=== PATIENT | male | born 1945 | race African-American/Black ===

== ENCOUNTER 2018-11-05 11:44 | Observation (INO) | payer OTHER ==
[2018-11-05] MEDS ORDERED: Nitroglycerin 2% Ointment 1 INCH/1 GM Packet ONE (12:12)
--- NOTE | 2018-11-05 12:16 | RAD ---
XR Chest 1 View Portable HISTORY: Chest pain COMPARISON: None FINDINGS: The heart size is normal. The lungs are well expanded without focal areas of consolidation, pneumothorax or pleural effusions. IMPRESSION: No radiographic evidence of acute cardiopulmonary process.
[2018-11-05 12:28] LABS: #Lymphocytes 0.9 thou/uL (1.20-3.40); #Monocytes 0.3 thou/uL (0.11-0.59); #Neutrophils 2.1 thou/uL (1.40-6.50); %Basophils 0.2 % (0.0-1.0); %Eosinophils 1.4 % (0.0-10.0); %Lymphocytes 27.1 % (21.0-51.0); %Monocytes 8.1 % (0.0-10.0); %Neutrophils 63.1 % (42.0-75.0); Hemoglobin 14.1 g/dL (14.0-18.0); Mean Corpuscular HGB CONC 33.6 g/dL (32.0-36.0); Mean Corpuscular Hemoglobin 31.6 pg (27.0-31.0); Mean Corpuscular Volume 94.1 fL (78.0-98.0); Mean Platelet Volume 9.5 fL (7.4-10.4); Platelet Count 179 thou/uL (130-400); Red Blood Cell (RBC) Count 4.47 mill/uL (4.70-6.10); White Blood Cell (WBC) Count 3.3 thou/uL (4.8-10.8)
[2018-11-05] MEDS ORDERED: Acetaminophen 500 MG TAB ONE (12:33)
[2018-11-05 12:47] LABS: ALT (SGPT) 14 U/L (8-55); AST (SGOT) 19 U/L (5-34); Albumin 3.9 g/dL (3.4-4.8); Alkaline Phosphatase 85 U/L (40-150); Anion Gap 14 mmol/L (10-20); BUN (Urea Nitrogen) 19 mg/dL (8.4-25.7); Bilirubin, Total 0.9 mg/dL (0.2-1.2); Calc. Creatinine Clearance 0 mL/min (70-130); Calcium 9.2 mg/dL (7.8-10.44); Carbon Dioxide 23 mmol/L (23-31); Chloride 106 mmol/L (98-107); Estimated GFR-MDRD 66; Globulin 3.2 g/dL (2.4-3.5); Glucose 84 mg/dL (83-110); Potassium 4.1 mmol/L (3.5-5.1); Protein, Total 7.1 g/dL (5.8-8.1); Sodium 139 mmol/L (136-145)
[2018-11-05 13:13] LABS: CKMB 1.7 ng/mL (0-6.6)
--- NOTE | 2018-11-05 14:09 | PDOC.FPRHP ---
- History of Present Illness Chief Complaint: Chest Pain History of Present Illness: 73 y/o M PMHx CAD, HTN, HLD presents from halfway for chest pain. The patient reports the chest pain was substernal, left sided and started this morning around 9 or 9:30. He reports that it is a squeezing/pressure type pain. It does not radiate. He has associated SOB, but denies any diaphoresis or nausea. He reports he also has a sharp pain that comes and goes. He received 2 nitros and aspirin at the shelter that relieved the chest pain, but the chest pain returned when EMS picked him up, so he got one more nitro. By the time he arrived in the ED he was still complaining of 5/10 chest pain and the nitropaste relieved this. He reports a cardiac catheterization at [facility] in 2016 that showed CAD, but nothing that required stenting, so they proceeded with medical management. He reports prior to this AM, he was not having any chest pain and not requiring his nitro in a few years. ED Course: The patient was evaluated in the ED by Dr. Noble and received one inch nitro paste and 1000mg tylenol. - Allergies/Adverse Reactions Allergies Allergy/AdvReac Type Severity Reaction Status Date / Time No Known Allergies Allergy Verified 11/05/18 16:22 - Home Medications Medication Instructions Recorded Confirmed Type Aspirin Chewable 81 mg PO DAILY 11/05/18 11/05/18 History Atorvastatin Calcium 40 mg PO HS 11/05/18 11/05/18 History Carvedilol 25 mg PO BID 11/05/18 11/05/18 History Isosorbide Mononitrate [Isosorbide 60 mg PO DAILY 11/05/18 11/05/18 History Mononitrate ER] Lisinopril 5 mg PO DAILY 11/05/18 11/05/18 History hydrALAZINE [Apresoline] 25 mg PO TID 11/05/18 11/05/18 History - History PMHx: CAD, HTN, HLD PSHx: appendectomy FHx: Mother - CAD Social: Denies tobacco, EtOH, or drug use. Currently a prisoner. - Review of Systems General: denies: fever/chills, fatigue Eyes: reports: vision changes (reports occasional blurry vision that comes and goes). denies: eye pain ENT: denies: nasal congestion, rhinorrhea Respiratory: denies: cough, shortness of breath Cardiovascular: denies: chest pain, edema Gastrointestinal: denies: nausea, vomiting, diarrhea, abdominal pain Genitourinary: denies: dysuria, polyuria Skin: denies: rashes, lesions Musculoskeletal: denies: pain, tenderness, stiffness Neurological: denies: numbness, syncope, seizure, weakness Psychological: denies: anxiety, depression - Vital signs BP: 152/88 HR: 55 RR: 15 Tmax: 98.1 Pox: 98% on RA Wt: 97.5 kg - Physical Exam Constitutional: NAD, awake, alert and oriented, well developed HEENT: normocephalic and atraumatic, PERRLA, EOMI, conjunctiva clear, no scleral icterus, grossly normal vision, grossly normal hearing, normal nasal mucosa, MMM, oropharynx clear Neck: supple, no LAD Chest: no-tender to palpation, no lesions Heart: RRR, normal S1/S2, no murmurs/rubs/gallops, pulses present, no edema Lungs: CTAB, no respiratory distress, good air movement, no rales/rhonchi, no wheezing Abdomen: soft, non-tender, bowel sounds present, no masses/distention Musculoskeletal: normal structure, normal tone Neurological: no focal deficit, CN II-XII intact, normal sensation Skin: good turgor, capillary refill <2 seconds Heme/Lymphatic: no unusual bruising or bleeding, no purpura, no petechia Psychiatric: normal mood and affect, good judgment and insight, intact recent and remote memory FMR H&P: Results - Labs Result Diagrams: 11/06/18 04:35 11/06/18 04:35 Lab results: WBC 3.3 thou/uL (4.8-10.8) L 11/05/18 12:19 Hgb 14.1 g/dL (14.0-18.0) 11/05/18 12:19 Hct 42.1 % (42.0-52.0) 11/05/18 12:19 MCV 94.1 fL (78.0-98.0) 11/05/18 12:19 Plt Count 179 thou/uL (130-400) 11/05/18 12:19 Neutrophils % 63.1 % (42.0-75.0) 11/05/18 12:19 Sodium 139 mmol/L (136-145) 11/05/18 12:19 Potassium 4.1 mmol/L (3.5-5.1) 11/05/18 12:19 Chloride 106 mmol/L (98-107) 11/05/18 12:19 Carbon Dioxide 23 mmol/L (23-31) 11/05/18 12:19 BUN 19 mg/dL (8.4-25.7) 11/05/18 12:19 Creatinine 1.09 mg/dL (0.7-1.3) 11/05/18 12:19 Glucose 84 mg/dL (83-110) 11/05/18 12:19 Calcium 9.2 mg/dL (7.8-10.44) 11/05/18 12:19 Total Bilirubin 0.9 mg/dL (0.2-1.2) 11/05/18 12:19 AST 19 U/L (5-34) 11/05/18 12:19 ALT 14 U/L (8-55) 11/05/18 12:19 Alkaline Phosphatase 85 U/L (40-150) 11/05/18 12:19 CK-MB (CK-2) 1.7 ng/mL (0-6.6) 11/05/18 12:19 Serum Total Protein 7.1 g/dL (5.8-8.1) 11/05/18 12:19 Albumin 3.9 g/dL (3.4-4.8) 11/05/18 12:19 - EKG Interpretation EKG: Rate 60, no ST or T wave changes - Radiology Interpretation Chest x-ray Status: image reviewed by me, report reviewed by me Additional comment: No acute cardiopulmonary process FMR H&P: A/P - Problem List (1) Anginal chest pain at rest Current Visit: Yes Status: Acute Code(s): I20.8 - OTHER FORMS OF ANGINA PECTORIS (2) HTN (hypertension) Current Visit: Yes Status: Acute Code(s): I10 - ESSENTIAL (PRIMARY) HYPERTENSION (3) HLD (hyperlipidemia) Current Visit: Yes Status: Acute Code(s): E78.5 - HYPERLIPIDEMIA, UNSPECIFIED (4) CAD (coronary artery disease) Current Visit: Yes Status: Acute Code(s): I25.10 - ATHSCL HEART DISEASE OF [place] CORONARY ARTERY W/O ANG PCTRS (5) Elevated troponin Current Visit: Yes Status: Acute Code(s): R74.8 - ABNORMAL LEVELS OF OTHER SERUM ENZYMES (6) Leukopenia Current Visit: Yes Status: Acute Code(s): D72.819 - DECREASED WHITE BLOOD CELL COUNT, UNSPECIFIED - Plan Anginal Chest Pain Patient with Heart Score 6. Initial troponin 0.056. EKG WNL. -Will trend trops -Consulted cardiology who recommended lexiscan stress test -NPO and hold beta blockers -Obs on tele Leukopenia Pt with initial WBC count of 3.3, currently in halfway -Will check HIV, RPR, Hep C -Trend CAD Patient with h/o CAD with no prior intervention -Aspirin -Continue home isosorbide mononitrate, lisinopril -Held coreg for stress test HTN BP's stable at this time -Will continue home isosorbide mononitrate, lisinopril, hydralazine HLD Will check FLP -Continue home atorvastatin VTE ppx: Lovenox Code Status: Full Disposition/LOS: Obs on tele, length of stay likely less than 48 hours Addendum - Attending - Attending Attestation Date/Time: 11/06/18 1028 I personally evaluated the patient and discussed the management with Dr. Hoang on 11/05. I agree with the History, Examination, Assessment and Plan documented above with any addition or exceptions noted below. A couple components of typical chest pain and a history of CAD + elevated TnI. Will consult cardiology. Also apparently an adverse event to the stress test 3 years ago.
[2018-11-05] MEDS ORDERED: Nitroglycerin 0.4 MG TAB (25 Tab Bottle) PO PRN (16:00)
[2018-11-05] MEDS ORDERED: Ondansetron PF 4 MG/2 ML Vial IVP PRN (16:00)
[2018-11-05] MEDS ORDERED: Ondansetron ODT 4 MG TAB PO PRN (16:00)
[2018-11-05 16:08] LABS: Troponin I 0.118 ng/mL (< 0.028)
[2018-11-05 17:23] LABS: Magnesium 2.2 mg/dL (1.6-2.6); Phosphorus 3.8 mg/dL (2.3-4.7)
[2018-11-05] MEDS: hydrALAZINE 25 MG TAB PO SCH ×2 (17:27→20:35)
[2018-11-05 17:37] LABS: HIV (1/2) Antibody/Antigen Non-Reactive (NonReactive); HIV 1/2 INDEX 0.12 S/CO (<1.00); Hep C IgG Ab Non-Reactive (NonReactive); Hep C Index 0.04 S/CO (0-0.79)
[2018-11-05 17:38] LABS: Troponin I 0.085 ng/mL (< 0.028)
--- NOTE | 2018-11-05 19:57 | CON ---
DATE OF CONSULTATION: 11/05/2018 REASON FOR CONSULTATION: Chest pain. HISTORY OF PRESENT ILLNESS: Mr. Benavides is a 73-year-old gentleman, who comes to the hospital for chest pain. He is an inmate. He started having chest pain earlier this morning, has been ongoing for about 24 hours now. The pain is described as mild pressure in the midsternal area. He had a heart catheterization about 3 years ago at [facility] for the same reason, at which point he was told he had some plaque formation, but nothing in that they would need to put a stent in. He is an inmate in a longterm. He received two nitroglycerins and an aspirin, which he states alleviate the pain. He is here for further evaluation. So far, his troponins have been in the indeterminate range. PAST MEDICAL HISTORY: 1. Coronary artery disease as above. 2. Hypertension. 3. Hyperlipidemia. PAST SURGICAL HISTORY: Appendectomy. FAMILY HISTORY: Mother with CAD. SOCIAL HISTORY: No alcohol, tobacco, or drugs. OUTPATIENT MEDICATIONS: 1. Aspirin 81 a day. 2. Atorvastatin 40 mg a day. 3. Carvedilol 25 mg b.i.d. 4. Imdur 60 mg a day. 5. Lisinopril 5 mg a day. 6. Hydralazine 25 mg t.i.d. REVIEW OF SYSTEMS: A 12-point review of systems was done and was all negative unless stated in the history of present illness. ALLERGIES: NO KNOWN DRUG ALLERGIES. PHYSICAL EXAMINATION: VITAL SIGNS: Temperature 98.0, pulse 59, respiratory rate 20, saturation 95% on room air, and blood pressure 149/78. GENERAL: Awake, alert, and oriented x3, in no distress. HEENT: Normocephalic, atraumatic. NECK: Supple. LUNGS: Clear. CARDIOVASCULAR: S1 and S2. No S3 or S4. No murmurs. ABDOMEN: Soft. Positive bowel sounds. EXTREMITIES: No edema. SKIN: Warm and dry. LABORATORY DATA: Laboratory work was reviewed. CBC and CMP were reviewed. Troponins are 0.05, 0.11, and then 0.08. TSH was normal. Normal BUN and creatinine. GFR of 66. Chest x-ray was reviewed. ASSESSMENT: 1. Chest pain. 2. History of mild coronary artery disease. PLAN: Agreed with stress testing. He is ruled out for an ACS at this time. If his stress is abnormal, we will plan on further risk stratification, otherwise further recommendations pending results of the stress and echocardiogram. Job ID: [id number]
[2018-11-05] MEDS ORDERED: Atorvastatin Calcium 40 MG TAB PO SCH (21:00)
[2018-11-06 00:30] LABS: Syphilis Antibody Nonreactive (Nonreactive); Syphilis Antibody Index 0.04 S/CO (<1.00 Non-Reactive)
[2018-11-06 05:48] LABS: #Eosinphils 0.1 thou/uL (0.0-0.7); #Lymphocytes 1.2 thou/uL (1.20-3.40); #Monocytes 0.4 thou/uL (0.11-0.59); #Neutrophils 2.4 thou/uL (1.40-6.50); %Basophils 0.7 % (0.0-1.0); %Eosinophils 2.1 % (0.0-10.0); %Lymphocytes 28.9 % (21.0-51.0); %Monocytes 10.2 % (0.0-10.0); %Neutrophils 58.1 % (42.0-75.0); Hemoglobin 13.5 g/dL (14.0-18.0); Mean Corpuscular HGB CONC 32.8 g/dL (32.0-36.0); Mean Corpuscular Volume 94.5 fL (78.0-98.0); Mean Platelet Volume 9.7 fL (7.4-10.4); Platelet Count 172 thou/uL (130-400); Red Blood Cell (RBC) Count 4.35 mill/uL (4.70-6.10); White Blood Cell (WBC) Count 4.2 thou/uL (4.8-10.8)
[2018-11-06 06:06] LABS: Anion Gap 9 mmol/L (10-20); BUN (Urea Nitrogen) 15 mg/dL (8.4-25.7); Calc. Creatinine Clearance 87 mL/min (70-130); Calcium 9.4 mg/dL (7.8-10.44); Carbon Dioxide 28 mmol/L (23-31); Cardiac Risk 2.6 (Less than 4.5); Chloride 104 mmol/L (98-107); Cholesterol 120 mg/dl (< 200 Desired); Estimated GFR-MDRD 89; Glucose 75 mg/dL (83-110); HDL Cholesterol 47 mg/dL (>60 Neg Risk); LDL Cholesterol, Calculated 64 mg/dL; Potassium 3.6 mmol/L (3.5-5.1); Sodium 137 mmol/L (136-145); Triglycerides 44 mg/dL (Less than 150)
[2018-11-06 06:20] VITALS: BMI 29.4
[2018-11-06] MEDS ORDERED: Acetaminophen 325 MG TAB PO PRN (06:25)
--- NOTE | 2018-11-06 08:46 | PDOC.FM ---
- Subjective Subjective: Patient reports chest pain has improved. He still reports some residual substernal chest pain that is not exacerbated by movement, but is worsened with palpation. He denies SOB, diaphoresis. He tolerated PO yesterday well. He denies any recent change in level of activity. - Objective MAR Reviewed: Yes Vital Signs & Weight: Vital Signs (12 hours) Temp Pulse Resp BP BP Pulse Ox 11/06/18 07:53 98.5 F 65 14 185/88 H 96 11/06/18 02:00 97.7 F 58 L 18 155/79 H 95 11/05/18 23:42 97.3 F L 57 L 18 141/69 H 98 Weight Weight 92.986 kg I&O: 11/05/18 11/06/18 11/07/18 06:59 06:59 06:59 Intake Total 730 Output Total 500 Balance 230 Result Diagrams: 11/06/18 04:35 11/06/18 04:35 Phys Exam - Physical Examination Constitutional: NAD HEENT: moist MMs, sclera anicteric Respiratory: no wheezing, no rales, no rhonchi, clear to auscultation bilateral Cardiovascular: RRR, no significant murmur, no rub Gastrointestinal: soft, non-tender, no distention, positive bowel sounds Musculoskeletal: no edema, pulses present mild sternal tenderness, not exact pain reproduced Neurological: non-focal, moves all 4 limbs Psychiatric: normal affect, A&O x 3 Skin: normal turgor, cap refill <2 seconds Dx/Plan (1) Anginal chest pain at rest Code(s): I20.8 - OTHER FORMS OF ANGINA [place]ECT[place] Status: Acute (2) HTN (hypertension) Code(s): I10 - ESSENTIAL (PRIMARY) HYPERTENSION Status: Acute (3) HLD (hyperlipidemia) Code(s): E78.5 - HYPERLIPIDEMIA, UNSPECIFIED Status: Acute (4) CAD (coronary artery disease) Code(s): I25.10 - ATHSCL HEART DISEASE OF [place] CORONARY ARTERY W/O ANG PCTRS Status: Acute (5) Elevated troponin Code(s): R74.8 - ABNORMAL LEVELS OF OTHER SERUM ENZYMES Status: Acute (6) Leukopenia Code(s): D72.819 - DECREASED WHITE BLOOD CELL COUNT, UNSPECIFIED Status: Acute - Plan Plan: Anginal Chest Pain Patient with Heart Score 6. Trops indeterminate x3. EKG WNL. DDx could include stable angina vs costochondritis -Consulted cardiology who recommended lexiscan stress test -NPO and hold beta blockers Leukopenia Pt with initial WBC count of 3.3, currently in group home. HIV, RPR, Hep C negative. -Trend CAD Patient with h/o CAD with no prior intervention -Aspirin -Continue home isosorbide mononitrate, lisinopril -Held coreg for stress test HTN BP's stable at this time -Will continue home isosorbide mononitrate, lisinopril, hydralazine HLD FLP stable -Continue home atorvastatin VTE ppx: Lovenox Code Status: Full Addendum - Attending - Attending Attestation Date/Time: 11/06/18 7995 I personally evaluated the patient and discussed the management with Dr. Hoang I agree with the History, Examination, Assessment and Plan documented above with any addition or exceptions noted below.
[2018-11-06] MEDS ORDERED: Enoxaparin Sodium 40 MG/0.4 ML SYRINGE SC SCH (09:00)
[2018-11-06] MEDS ORDERED: Lisinopril 5 MG TAB PO SCH (09:00)
[2018-11-06] MEDS ORDERED: Aspirin 325 mg Enteric Coated Tablet PO SCH (09:00)
[2018-11-06] MEDS ORDERED: Regadenoson 0.4 MG/5 ML SYRINGE ONE (10:45)
[2018-11-06 12:20] VITALS: BP 169/77; TEMP 97.4
--- NOTE | 2018-11-06 12:29 | NM ---
EXAM: Nuclear medicine cardiac perfusion examination with ejection fraction HISTORY: Chest pain TECHNIQUE: Rest images: 10.5 mCi technetium 99m sestamibi Stress images: 32.7 mCi of technetium 9M sestamibi; Lexiscan COMPARISON: None FINDINGS: Tomographic images: No fixed or reversible perfusion defects. Gated images: Normal wall motion and ejection fraction of 63%. EDV: 131 mL LHR: 0.3 TID: 1.0 IMPRESSION: No evidence of ischemia
[2018-11-06] MEDS: hydrALAZINE 25 MG TAB PO SCH ×2 (14:06)
--- NOTE | 2018-11-06 17:57 | PDOC.CTH ---
Cardiology Progress Note - Subjective No more chest pain. - Objective Vital Signs Temp Pulse Resp BP Pulse Ox 11/06/18 14:06 65 11/06/18 12:14 97.4 F L 65 16 169/77 H 98 11/06/18 07:53 98.5 F 65 14 185/88 H 96 Weight 204 lb 15.999 oz 11/05/18 11/06/18 11/07/18 06:59 06:59 06:59 Intake Total 730 Output Total 500 Balance 230 - Physical Examination General/Neuro: alert & oriented x3, NAD Neck: no JVD present Lungs: CTA, unlabored respirations Heart: RRR Abdomen: NT/ND Extremities: other: (no edema) - Telemetry Telemetry Rhythm: NSR - Labs Result Diagrams: 11/06/18 04:35 11/06/18 04:35 Troponin/CKMB CK-MB (CK-2) 1.7 ng/mL (0-6.6) 11/05/18 12:19 Troponin I 0.085 ng/mL (< 0.028) H 11/05/18 16:45 - Assessment/Plan 1. Chest pain 2. normal stress test. PLAN - Normal LHC recently and a normal stress test with negative troponins. Unlikely to be cardiac chest pain. - May discharge from cardiac perspective anytime. - Will sign off.
--- NOTE | 2018-11-08 04:30 | DIS ---
DATE OF ADMISSION: 11/05/2018 DATE OF DISCHARGE: 11/06/2018 ADMITTING ATTENDING: Shashank Hung MD. DISCHARGE ATTENDING: Tyrone Fernandes MD. RESIDENT: Desiree Hoang MD. CONSULTS: Dr. Forde with Cardiology. PROCEDURES: Nuclear stress test on 11/06/2018, that showed no evidence of ischemia and ejection fraction of 63%. IMAGING DATA: 1. Chest x-ray showed no acute cardiopulmonary process. 2. Echocardiogram showed EF of 60% to 65%. He had a flow reversal suggestive of diastolic dysfunction, moderately dilated left atrium. PRIMARY DIAGNOSES: 1. Anginal chest pain. 2. Leukopenia. SECONDARY DIAGNOSES: 1. Coronary artery disease. 2. Hypertension. 3. Hyperlipidemia. DISCHARGE MEDICATIONS: 1. Aspirin 81 mg p.o. daily. 2. Atorvastatin 40 mg p.o. at bedtime. 3. Carvedilol 25 mg p.o. b.i.d. 4. Hydralazine 25 mg p.o. t.i.d. 5. Isosorbide mononitrate 60 mg p.o. daily. 6. Lisinopril 5 mg p.o. daily. 7. Nitroglycerin 0.4 mg p.o. q.5 minutes p.r.n. chest pain. DISCONTINUED MEDICATIONS: None. HISTORY OF PRESENT ILLNESS/HOSPITAL COURSE: This is a 73-year-old male with past medical history of coronary artery disease with small amount of plaque, no intervention, as well as hypertension, presented from half-way due to acute onset chest pain that was substernal squeezing, pressure-type chest pain, relieved with nitroglycerin. The patient had a HEART score of 6. His initial troponin was indeterminate at 0.056. This up trended to 0.118 and then down trended to 0.085. Dr. Forde was consulted. He recommended a stress test which was performed and showed no reversible defect. The patient had a cholesterol panel checked to risk stratify and it was within normal limits. The patient had normal TSH, normal chest x-ray, and his chest pain had improved by the time of discharge. The patient was able to be discharged back to the half-way in stable condition with instructions to follow up with outpatient cardiology and continue taking preventative medications. DISPOSITION: Stable. DISCHARGE INSTRUCTIONS: 1. Location: [facility]. 2. Diet: Heart healthy. 3. Activity: As tolerated. 4. Followup: Follow up with PCP within 7 days. Job ID: [id number]
== END 2018-11-06 15:14 ==
LOC: EEVIPCON 11:44 → ERS 11:44 → 2SW 14:06
PROVIDERS: ADMIT Emergency Medicine; ATTEND Emergency Medicine
DX: I25.119 Atherosclerotic heart disease of native coronary artery with unspecified angina pectoris (principal); I10 Essential (primary) hypertension; E78.5 Hyperlipidemia, unspecified; D72.819 Decreased white blood cell count, unspecified; Z79.82 Long term (current) use of aspirin; Z79.899 Other long term (current) drug therapy
CPT/HCPCS: 36415; 71045; 78452; 80048; 80053; 80061; 82553; 83735; 84100; 84443; 84484; 85025; 86780; 86803; 87389; 93005; 93017; 93306; 94760; A9500; G0378; J2785